=== PATIENT | female | born 1980 | race Caucasian/White ===

== ENCOUNTER 2017-02-15 22:59 | Emergency (ER) | payer MEDICAID ==
[~2017-02-15] VITALS: Ht 147.3 cm; Wt 55.8 kg
[2017-02-15 23:00] VITALS: BP_SYST 131
[2017-02-15] MEDS ORDERED: IPRATROPIUM/ALBUTEROL SULFATE 3 ML AMPUL.NEB INH ONE (23:15)
[2017-02-15] MEDS ORDERED: methylPREDNISolone SOD SUCC/PF 62.5 MG/ML VIAL IM ONE (23:30)
[2017-02-16] MEDS ORDERED: IPRATROPIUM/ALBUTEROL SULFATE 3 ML AMPUL.NEB INH ONE
[2017-02-16 00:45] VITALS: BP_SYST 122
== END 2017-02-16 00:45 | disposition home or self-care (01) ==
LOC: SED 22:59
DX: J20.9 Acute bronchitis, unspecified (principal)
CPT/HCPCS: 71010; 81025; 94640; 96372; 99284; J2930